=== PATIENT | female | born 1995 | race Two or more races ===

== ENCOUNTER 2022-07-17 06:28 | Emergency (ER) | payer OTHER ==
[~2022-07-17] VITALS: Ht 157.5 cm; Wt 58.1 kg
== END 2022-07-17 09:37 | disposition home or self-care (01) ==
LOC: ER 06:28
DX: O26.891 Other specified pregnancy related conditions, first trimester (principal); Z3A.08 8 weeks gestation of pregnancy; R10.2 Pelvic and perineal pain

== ENCOUNTER 2022-09-26 14:58 | Outpatient (CLI) | payer OTHER | END 2022-09-26 16:35 | disposition home or self-care (01) | LOC: PRENATAL 14:58 | PROVIDERS: ATTEND Obstetrics & Gynecology Maternal & Fetal Medicine | DX: O36.80X0 Pregnancy with inconclusive fetal viability, not applicable or unspecified (principal); Z36.9 Encounter for antenatal screening, unspecified; Z14.8 Genetic carrier of other disease; Z3A.13 13 weeks gestation of pregnancy ==

== ENCOUNTER 2022-11-15 08:05 | Outpatient (CLI) | payer OTHER | END 2022-11-15 09:05 | disposition home or self-care (01) | LOC: PRENATAL 08:05 | PROVIDERS: ATTEND Obstetrics & Gynecology Maternal & Fetal Medicine | DX: O35.3XX0 Maternal care for (suspected) damage to fetus from viral disease in mother, not applicable or unspecified (principal); O44.00 Complete placenta previa NOS or without hemorrhage, unspecified trimester; Z3A.20 20 weeks gestation of pregnancy ==

== ENCOUNTER 2023-02-07 08:51 | Outpatient (CLI) | payer OTHER | END 2023-02-07 08:52 | disposition home or self-care (01) | LOC: PRENATAL 08:51 | PROVIDERS: ATTEND Obstetrics & Gynecology Maternal & Fetal Medicine | DX: O26.849 Uterine size-date discrepancy, unspecified trimester (principal); O36.8199 Decreased fetal movements, unspecified trimester, other fetus; Z3A.32 32 weeks gestation of pregnancy ==

== ENCOUNTER 2023-03-19 21:49 | Outpatient (CLI) | payer OTHER ==
[2023-03-19 23:13] LABS: PH,URINE 6.5 (5.0-8.0); URINE APPEARANCE Clear; URINE BILIRRUBIN Negative (NEGATIVE); URINE BLOOD Negative; URINE COLOR Yellow; URINE GLUCOSE Negative (NEGATIVE); URINE LEUKOCYTE Small; URINE NITRATE Negative; URINE PROTEIN Negative (NEGATIVE)
[2023-03-19 23:18] LABS: URINE EPITHELIAL CELLS 62.2 uL (0.0-38.8); URINE WBC 29.6 uL (0.0-23.2)
[2023-03-19 23:25] LABS: MEAN CELL VOLUME 72.3 fL (80.00-100.00); PLATELET COUNT 252 K/uL (150-450); RED BLOOD COUNT 4.01 M/uL (4.00-6.00); RED CELL DISTRIBUTION WIDTH 14.1 % (11.5-14.5)
[2023-03-19 23:41] LABS: URINE RBC 1.5 uL (0.0-20.8)
[2023-03-19 23:43] LABS: HEMOGLOBIN 9.6 g/dL (12.0-15.00); MEAN CORPUSCULAR HEMOGLOBIN 23.9 pg (27.00-32.0)
[2023-03-20] MEDS ORDERED: AMPICILLIN SOD500 MG IM (15:51)
[2023-03-20] MEDS ORDERED: PRENATAL TABLE1 EAC1 PO (15:51)
== END 2023-03-20 10:20 | disposition home or self-care (01) ==
LOC: OBS/DEL 21:49
PROVIDERS: ATTEND Obstetrics & Gynecology
DX: O47.1 False labor at or after 37 completed weeks of gestation (principal); Z3A.38 38 weeks gestation of pregnancy

== ENCOUNTER 2023-03-20 15:47 | Inpatient (IN) | payer OTHER ==
[~2023-03-20] VITALS: Ht 157.5 cm; Wt 68.0 kg
[2023-03-20] MEDS ORDERED: PRENATAL TABLE1 EAC1 PO (15:51)
[2023-03-20] MEDS ORDERED: AMPICILLIN SOD500 MG IM (15:51)
[2023-03-20 16:26] LABS: INR < 0.93; PARTIAL THROMBOPLASTIN TIME 28.7 SECONDS (22.0-34.0); PROTHROMBIN TIME 9.4 SECONDS (9.0-11.5)
[2023-03-20 16:27] LABS: CALCIUM 8.5 mg/dL (8.5-10.1); CREATININE SERUM 0.67 mg/dL (0.55-1.02); GFR 106.39; POTASSIUM 4.03 mEq/L (3.5-5.1)
[2023-03-20 22:30] LABS: ABG PH 7.401 (7.35-7.45); ABG pCO2 35.8 mmHg (35-45); BASE EXCESS -2.4 mmol/l; BICARBONATE 21.7 mmol/l (23-25); Tco2 22.8 mmol/l; o2 21 %
[2023-03-21 01:25] LABS: HEMATOCRIT 27.1 % (36.0-45.00); HEMOGLOBIN 8.8 g/dL (12.0-15.00); MEAN CELL VOLUME 71.3 fL (80.00-100.00); MEAN CORPUSCULAR HEMOGLOBIN 23.1 pg (27.00-32.0); MEAN CORPUSCULAR HGB CONC 32.6 g/dl (32.0-36.0); PLATELET COUNT 217 K/uL (150-450); RED CELL DISTRIBUTION WIDTH 14.1 % (11.5-14.5)
== END 2023-03-22 13:20 | disposition home or self-care (01) | DRG 807 ==
LOC: OB/GYN 15:47 → LDR 15:47 → OB/GYN 20:10
PROVIDERS: ADMIT Obstetrics & Gynecology; ATTEND Obstetrics & Gynecology
PROC: 10E0XZZ Delivery of Products of Conception, External Approach (ICD-10-PCS; principal; 2023-03-20)
PROC: 4A1HXCZ Monitoring of Products of Conception, Cardiac Rate, External Approach (ICD-10-PCS; 2023-03-20)
DX: O99.824 Streptococcus B carrier state complicating childbirth (principal); Z37.0 Single live birth; Z3A.38 38 weeks gestation of pregnancy; Z20.822 Contact with and (suspected) exposure to COVID-19